=== PATIENT | female | born 2000 | race Caucasian/White ===

== ENCOUNTER 2025-02-16 09:29 | Outpatient (RCR) | payer BC, SELFPAY ==
--- NOTE | 2025-02-16 10:00 | XR_ITS ---
Examination: HIDA, hepatobiliary radioisotope scan Gallbladder ejection fraction study. Date and time of exam: February 08, 2025 1010 hours INDICATIONS: Heartburn months, abnormal gallbladder ejection fraction, 18% HIDA scan March 03, 2024 Technique: 5.8 mCi of 99M Hepatolite administered. Serial imaging then obtained from immediate through 60 minutes. 2.0 mcg selective catheter Kinevac administered for gallbladder ejection fraction study. Findings: Radioisotope activity within the liver is reasonably homogenous. Gallbladder, common bile duct small bowel activity noted Impression: Gallbladder activity Gallbladder ejection fraction abnormal, 34%, normal greater than 35%
[2025-02-16 10:08] LABS: HCG Qualitative,Urine Negative
== END 2025-02-21 23:59 | disposition home or self-care (01) ==
LOC: SNUC 09:29
PROVIDERS: PCP Physician Assistant; Referring Provider Specialist; Visit Provider Specialist
DX: R93.89 Abnormal findings on diagnostic imaging of other specified body structures (principal); Z32.00 Encounter for pregnancy test, result unknown
CPT/HCPCS: 78227; 81025; A9537; J2805